=== PATIENT | male | born 1945 | race Caucasian/White ===

== ENCOUNTER 2024-12-25 09:35 | Emergency (ER) | payer MEDICARE, OTHER, SELFPAY ==
[2024-12-25 09:36] VITALS: BMI 34.9
[2024-12-25 09:48] VITALS: BP 141/71; PULSE 81; RESP 17; TEMP 36.7; O2SAT 96
--- NOTE | 2024-12-25 10:05 | XR_ITS ---
Examination: Knee, left , 3 views Technique: Knee AP, lateral, oblique 3 views Date and time of exam: December 25, 2024 1023 hours INDICATIONS: Injury to the knee one month ago, knee pain. FINDINGS: No fracture or dislocation. Moderate narrowing medial patellofemoral joints IMPRESSION: No fracture or dislocation
--- NOTE | 2024-12-25 10:05 | XR_ITS ---
Examination: Left elbow 3 views Technique: Elbow AP, oblique, lateral 3 views Exam date and time: December 25, 2024 1023 hours INDICATIONS: Injury to the elbow one month ago FINDINGS: No elbow fracture or dislocation No elbow effusion IMPRESSION: No fracture or dislocation.
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
== END 2024-12-25 12:02 | disposition home or self-care (01) ==
PROVIDERS: Emergency Provider Family Medicine; PCP Family Medicine
DX: S51.012A Laceration without foreign body of left elbow, initial encounter (principal); S80.212A Abrasion, left knee, initial encounter; V19.3XXA Pedal cyclist (driver) (passenger) injured in unspecified nontraffic accident, initial encounter; Y93.55 Activity, bike riding
CPT/HCPCS: 73080; 73562; 99283; A4565